=== PATIENT | female | born 1970 | race Caucasian/White ===

== ENCOUNTER 2021-07-15 16:55 | Emergency (ER) | payer OTHER ==
[~2021-07-15] VITALS: Ht 157.5 cm; Wt 86.2 kg
[2021-07-15] MEDS ORDERED: PERIDEX 0.12%473 M1 SWISH&SPIT (17:16)
[2021-07-15] MEDS ORDERED: AUGMENTIN875 PO (17:16)
[2021-07-15 17:25] VITALS: BP 146/70
== END 2021-07-15 17:26 | disposition home or self-care (01) ==
LOC: M.ERS 16:55
DX: K04.7 Periapical abscess without sinus (principal)